=== PATIENT | male | born 1945 | race Caucasian/White ===

== ENCOUNTER → 2017-12-19 | Outpatient (CLI) | payer MEDICARE, OTHER ==
[~2017-12-19] MED LIST: ATOR20TA22 PO; ATOR40TA24 PO; AZIT-17 PO; INNOPRAN XL; LORA-802 PO; NASOCORT; PROL80 PO; PROP40TA45 PO; PROP80TA25 PO; TRIA10.8
[2017-12-19 10:18] LABS: PLATELET COUNT, AUTOMATED 291 K/uL (150-450)
[2017-12-19 10:28] LABS: LDL CHOLESTEROL 67 mg/dl
== END ==
LOC: LAB 09:53
PROVIDERS: ATTEND Internal Medicine
DX: E78.5 Hyperlipidemia, unspecified (principal); C61 Malignant neoplasm of prostate; J32.9 Chronic sinusitis, unspecified
CPT/HCPCS: 36415; 81001; 82040; 82247; 82310; 82374; 82435; 82465; 82565; 82947; 83036; 83718; 84075; 84132; 84153; 84155; 84295; 84443; 84450; 84460; 84478; 84520; 85025

== ENCOUNTER → 2018-01-09 | Outpatient (CLI) | payer MEDICARE, OTHER ==
[~2018-01-09] MED LIST changes: +AMOX-559 PO; +PROP80CA40 PO
--- NOTE | 2018-01-09 15:31 | RADIOLOGY IMAGING REPORT ---
FACILITY: [facility] - [place] PATIENT NAME: Romero Gold : 1945 MR: [id number] V: [id number] EXAM DATE: ORDERING PHYSICIAN: BRIANA MATTHEWS TECHNOLOGIST: Location: [facility] - [place] Patient: Romero Gold : 1945 Visit/Account:[id number] Date of Sevice: 01/09/2018 Study: CT scan of the paranasal sinuses Indication: Sinus congestion Comparison study:None Technique: Multiple axial images were obtained through the paranasal sinuses. Coronal and sagittal 2- dimensional reconstructions were made from the original data set. One of the following dose optimization techniques was utilized in the performance of this exam: Autom ated exposure control; adjustment of the mA and/or kV according to the patient's size; or use of an i terative reconstruction technique. Specific details can be referenced in the facility's radiology C T exam operational policy. Findings: Maxillary sinuses: There are small bilateral air-fluid levels present within the maxillary sinuses. T his is consistent with acute sinusitis. Ethmoid air cells:Unremarkable Sphenoid sinus:Unremarkable Frontal sinus:Unremarkable Ostiomeatal units:Patent bilaterally Nasal septum:Midline IMPRESSION: Bilateral maxillary sinus air-fluid levels, otherwise unremarkable exam. Report Dictated By: Heri Herr at 01/09/2018 3:26 PM Report E-Signed By: Heri Herr at 01/09/2018 3:27 PM WSN:[id number]
== END ==
LOC: CT 01:34
PROVIDERS: ATTEND Internal Medicine
DX: J32.0 Chronic maxillary sinusitis (principal)
CPT/HCPCS: 70486

== ENCOUNTER → 2018-03-10 | Outpatient (CLI) | payer MEDICARE, OTHER ==
[~2018-03-10] MED LIST changes: +DOXY-179 PO
--- NOTE | 2018-03-10 14:54 | EKG ---
FACILITY: [facility] - [place] PATIENT NAME: FABRICIO PLAZA : [id number] MR: [id number] V: [id number] EXAM DATE: ORDERING PHYSICIAN: BRIANA MATTHEWS TECHNOLOGIST: DEE DEE Test Reason : PRE OP Blood Pressure : / mmHG Vent. Rate : 063 BPM Atrial Rate : 063 BPM P-R Int : 168 ms QRS Dur : 088 ms QT Int : 390 ms P-R-T Axes : 067 078 051 degrees QTc Int : 399 ms Normal sinus rhythm Normal ECG No previous ECGs available Referred By: BYRON Confirmed By:
[2018-03-10 15:19] LABS: PLATELET COUNT, AUTOMATED 278 K/uL (150-450)
== END ==
LOC: LAB 14:28
PROVIDERS: ATTEND Otolaryngology
DX: I10 Essential (primary) hypertension (principal)
CPT/HCPCS: 36415; 82040; 82247; 82310; 82374; 82435; 82565; 82947; 84075; 84132; 84155; 84295; 84450; 84460; 84520; 85025; 93005

== ENCOUNTER 2018-03-27 02:33 | Day surgery (SDC) | payer MEDICARE, OTHER ==
[2018-03-27] VITALS (8 sets, daily range): BP systolic 133–151; BP diastolic 76–86
[~2018-03-27] VITALS: Ht 180.3 cm; Wt 72.1 kg
[~2018-03-27 02:33] MED LIST changes: +ceFAZolin(*) 2GM/D5W 50ML 50 ML IVPB ONE
[2018-03-27] MEDS ORDERED: LIDOCAINE/SOD BICARB 8.4% SYR ID ONE (09:35)
[2018-03-27] MEDS ORDERED: FAMOTIDINE 20 MG TAB PO ONE (09:35)
[2018-03-27] MEDS ORDERED: NORMOSOL R SOLN(*) 1000 ML BAG 1,000 ML IV PRN (09:35)
[2018-03-27] MEDS ORDERED: ceFAZolin(*) 2GM/D5W 50ML 50 ML IVPB ONE (09:35)
[2018-03-27] MEDS ORDERED: MIDAZOLAM 2 MG/2 ML VIAL IVP PRN (09:35)
[2018-03-27] MEDS ORDERED: BACITRACIN OINT 15 GM TUBE TP ONE (10:37)
[2018-03-27] MEDS ORDERED: LIDO/EPI 1% MDV 1:100,000 20ML INFIL ONE (10:37)
[2018-03-27] MEDS ORDERED: OXYMETAZOLINE SPRAY 15 ML BTL ONE (10:37)
[2018-03-27] MEDS ORDERED: NS(*) 0.9% 100 ML BAG 100 ML ONE (10:59)
[2018-03-27] MEDS ORDERED: ONDANSETRON 4 MG/2 ML VIAL ONE (11:04)
[2018-03-27] MEDS ORDERED: PROPOFOL EMUL(*) 10MG/ML 20 ML 20 ML ONE (11:04)
[2018-03-27] MEDS ORDERED: DEXAMETHASONE SOD PHOS 10MG/ML ONE (11:04)
[2018-03-27] MEDS ORDERED: HYDR-653 PO (11:37)
[2018-03-27] MEDS ORDERED: CEFU500T10 PO (11:38)
[2018-03-27] MEDS ORDERED: fentaNYL CITR 100 MCG/2 ML AMP ONE (11:44)
--- NOTE | 2018-03-27 11:49 | OPERATIVE REPORT 1 ---
EVENT DATE: March 27, 2018 SURGEON: Darrin Mendes MD ANESTHESIOLOGIST: Frank Han MD ANESTHESIA: LMA. PROCEDURE PERFORMED Bilateral maxillary antrostomies. PREOPERATIVE DIAGNOSIS Bilateral chronic maxillary sinusitis. POSTOPERATIVE DIAGNOSIS Bilateral chronic maxillary sinusitis. INDICATIONS Please refer to preoperative note. DESCRIPTION OF PROCEDURE The patient was positively identified in the preoperative area. He was there alone. Risks were again explained, including but not limited to bleeding, infection, injury of the orbit, vision changes, injury to the skull, cerebrospinal fluid leak and those associated with anesthesia. He acknowledged understanding those risks. I again reviewed the CT of the sinuses. This was notable for bilateral air fluid levels in the maxillary sinuses. He was then brought back to the operative suite, laid supine on the operative table and anesthesia was administered. Once asleep, the patient was positioned and prepped and draped in usual sterile fashion. I initially decongested both nasal cavities by placing cottonoids containing Afrin solution. I began on the right side. The cottonoids were removed. Approximately 1 cc of 1% lidocaine with epinephrine was infiltrated into the lateral nasal wall. An uncinectomy was performed. The natural maxillary ostium was identified and widened with backbiting forceps and the microdebrider blade. Bilateral NasoPore was placed between the middle turbinates and the lateral nasal wall. The patient was then turned to Anesthesia for emergence. ESTIMATED BLOOD LOSS Less than 10 cc. COMPLICATIONS No complications. MTDD
--- NOTE | 2018-03-27 12:45 | NUR ---
1220: report from vishal west, pts lungs are clear in all per[place], pt is awake but has eyes closed stating that he has vertigo. hypoactive bowl sounds. vss. 1222: pt put on blow by o2 to maintain o2 sats above 89% while sleeping.
[2018-03-27] MEDS ORDERED: APAP/HYDROCODONE 325/5 TAB ONE (13:07)
--- NOTE | 2018-03-27 15:14 | NUR ---
1230: pt rates pain at 3/10. pt was offered pain medication and declined "for the moment" 1300: pt is awake and alert, end blow by o2 1309: pts alarmed by 89% o2 on ra, pt put back on blow by 1311: pt given water and crackers 1312: pt agrees to pain medication, pt given norco see emar 1330: discharge instructions given to pt and , states understanding 1350: pt requested to go to the restroom. orthostatic bps started no significant changes 1405: pt dressing 1406: pt waiting in room while gets prescriptions 1445: pt taken to car via wheelchair, accompanied by maurice kunz rn
== END 2018-03-27 12:20 | disposition home or self-care (01) ==
LOC: OR 02:33
PROVIDERS: ATTEND Otolaryngology
DX: J32.0 Chronic maxillary sinusitis (principal); E78.5 Hyperlipidemia, unspecified; I10 Essential (primary) hypertension
CPT/HCPCS: 31020; A9270; J1100; J2405; J2704; J3010; J7050; J0690

== ENCOUNTER → 2018-05-26 | Outpatient (CLI) | payer MEDICARE, OTHER ==
[~2018-05-26] MED LIST changes: +CEFU500T10 PO; +HYDR-653 PO; +IPRA15SP7 NS; -ceFAZolin(*) 2GM/D5W 50ML 50 ML IVPB ONE
--- NOTE | 2018-05-26 10:40 | RADIOLOGY IMAGING REPORT ---
FACILITY: [facility] - [place] PATIENT NAME: Romero Gold : 1945 MR: [id number] V: [id number] EXAM DATE: ORDERING PHYSICIAN: ESPINOZA GORDON TECHNOLOGIST: Location: [facility] - [place] Patient: Romero Gold : 1945 Visit/Account:[id number] Date of Sevice: 05/26/2018 SINUSES < 3 VIEWS INDICATION: Pain. COMPARISON: None available. TECHNIQUE: Lateral, edwards view, and Kohli views of the skull were obtained. FINDINGS: No acute fracture or malalignment. Mastoid air cells are normally pneumatized. Orbital rims are intact. Nasal bones and nasal spine are unremarkable. No unusual opacification or air-fluid levels in the visualized paranasal sinuses. By plain films the frontal, ethmoid, sphenoid and maxillary sinuses are normally pneumatized. IMPRESSION: No significant paranasal sinus opacification by plain films. Report Dictated By: Nathanael Dixon at 05/26/2018 10:33 AM Report E-Signed By: Nathanael Dixon at 05/26/2018 10:35 AM WSN:[id number]
== END ==
LOC: RAD 09:54
PROVIDERS: ATTEND Otolaryngology
DX: J32.0 Chronic maxillary sinusitis (principal)
CPT/HCPCS: 70220